=== PATIENT | female | born 1975 | race African-American/Black ===

== ENCOUNTER → 2016-11-26 | Outpatient (CLI) | payer OTHER ==
--- NOTE | ~2016-11-26 | HM ---
Unit #: [id number] #: [id number] Patient: DEMETRIA FRANCO [id number] [facility] [address] [place], [place] [address] [id number] O MR#: [id number] NAME: DEMETRIA FRANCO : 1975 SEX: F STUDY DATE/TIME: UNIT: [facility] ROOM: STUDY DESCRIPTION: Holter Monitor Attending Physician: Jordy Steele Referring Physician: Jordy Steele Primary Care Physician: Marimar Bonilla M.D. CARDIOLOGY REPORT EXAM Holter Monitor DATE APPLIED 11/16/2016 DATE SCANNED 11/30/2070 ORDERED BY Renato Pink READ BY Noel Lacey M.D. REASON FOR TEST PVCs, tachycardia. DESCRIPTION 1. Basic underlying rhythm is normal sinus rhythm. Total beats 134,664. Average heart rate 94 per minute. Heart rate varies from 60 per minute at 1748 to 138 per minute at 2100. 2. No significant atrial arrhythmias noted. 3. 28,840 isolated PVCs noted. Episodes of bigeminy noted. 4. No high grade AV blocks noted. 5. No diary with the symptoms available. Dictated by... Jovi Sr/carolina TD: 12/01/2016 16:15 JOB #: [id number] Unit #: [id number] #: [id number] Patient: DEMETRIA FRANCO CARDIOLOGY REPORT Page 1 of 1 X Angela Lacey MD HOLTER MONITOR REPORT
== END | disposition home or self-care (01) ==
LOC: CEKG 11-25 10:30
DX: I49.3 Ventricular premature depolarization (principal); R00.0 Tachycardia, unspecified
CPT/HCPCS: 93225; 93226